=== PATIENT | male | born 1975 | race Caucasian/White ===

== ENCOUNTER 2017-06-11 12:43 | Emergency (ER) | payer OTHER ==
[2017-06-11 12:52] VITALS: TEMP 98.2
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
[2017-06-11] MEDS ORDERED: LET GEL TOPICAL 1 EA SYR TP ONE (13:25)
[2017-06-11] MEDS ORDERED: OXYCODONE/APAP 5/325 TAB PO ONE (13:25)
[2017-06-11 13:50] LABS: PLATELET COUNT 211 10^3/uL (150-400)
[2017-06-11] MEDS ORDERED: IOPAMIDOL (ISOVUE-300) 100 ML BTL ONE (14:31)
[2017-06-11 15:09] LABS: INR 0.89 (0.83-1.16); PROTIME(PATIENT) 12.3 SEC (12.0-15.0)
[2017-06-11 17:10] VITALS: BP 132/68; PULSE 74; RESP 16; O2SAT 96
== END 2017-06-11 17:10 | disposition home or self-care (01) ==
LOC: EDUNIT#
PROC: 0HQ0XZZ Repair Scalp Skin, External Approach (ICD-10-PCS; principal; 2017-06-11)
PROC: 0HQ1XZZ Repair Face Skin, External Approach (ICD-10-PCS; 2017-06-11)
PROC: 09Q1XZZ Repair Left External Ear, External Approach (ICD-10-PCS; 2017-06-11)
DX: S22.42XA Multiple fractures of ribs, left side, initial encounter for closed fracture (principal); S01.01XA Laceration without foreign body of scalp, initial encounter; S01.312A Laceration without foreign body of left ear, initial encounter; S01.81XA Laceration without foreign body of other part of head, initial encounter; F17.200 Nicotine dependence, unspecified, uncomplicated; Y00.XXXA Assault by blunt object, initial encounter; Y92.009 Unspecified place in unspecified non-institutional (private) residence as the place of occurrence of the external cause
CPT/HCPCS: Q9967